=== PATIENT | male | born 1990 | race Caucasian/White ===

== ENCOUNTER 2016-10-19 22:29 | Emergency (ER) | payer SELFPAY ==
[~2016-10-19] VITALS: Ht 177.8 cm; Wt 92.0 kg
[2016-10-19] MEDS ORDERED: ACETAMINOPHEN 325 MG TABLET PO ONE (23:00)
[2016-10-19] MEDS ORDERED: PLEASE ENTER ALLERGIES MC SCH ×2 (23:00)
[2016-10-19] MEDS ORDERED: ACETAMINOPHEN 500 MG TABLET ONE (23:10)
[2016-10-19 23:22] LABS: ASPARTATE AMINO TRANSFERASE 40 U/L (15-37); BLOOD UREA NITROGEN 12 mg/dL (7-18)
[2016-10-19 23:57] VITALS: BP 117/61
== END 2016-10-20 01:11 | disposition home or self-care (01) ==
LOC: ED 23:59
DX: R60.0 Localized edema (principal)
CPT/HCPCS: 36415; 80053; 85025; 85610; 85730